=== PATIENT | male | born 1990 | race Two or more races ===

== ENCOUNTER 2018-11-26 16:06 | Emergency (ER) | payer MEDICAID ==
[~2018-11-26] VITALS: Ht 167.6 cm; Wt 53.6 kg
[2018-11-26 16:16] VITALS: BP 107/67
--- NOTE | 2018-11-26 17:41 | NUR ---
Patient/Caregiver given discharge instructions and they have confirmed that they understand the instructions. Patient ambulatory with steady gait.
== END 2018-11-26 17:42 | disposition home or self-care (01) ==
LOC: ED 17:01
DX: B34.9 Viral infection, unspecified (principal); F17.200 Nicotine dependence, unspecified, uncomplicated
CPT/HCPCS: 99283

== ENCOUNTER 2019-11-22 14:35 | Emergency (ER) | payer MEDICAID ==
[~2019-11-22] VITALS: Ht 165.1 cm; Wt 53.0 kg
[2019-11-22 14:58] VITALS: BP 108/73
== END 2019-11-22 16:39 | disposition home or self-care (01) ==
LOC: ED 15:57
DX: H10.233 Serous conjunctivitis, except viral, bilateral (principal)
CPT/HCPCS: 99283

== ENCOUNTER 2020-01-18 11:02 | Emergency (ER) | payer MEDICAID ==
[~2020-01-18] VITALS: Ht 165.1 cm; Wt 53.4 kg
[2020-01-18 11:11] VITALS: BP 109/77
[2020-01-18 11:57] LABS: BASOPHILS # (AUTO) 0.01 x10^3/uL (0-0.1); BASOPHILS % (AUTO) 0 % (0-1); EOSINOPHILS # (AUTO) 0.05 x10^3/uL (0-0.4); EOSINOPHILS % (AUTO) 1 % (1-7); LYMPHOCYTES # (AUTO) 0.86 x10^3/uL (1-3.4); LYMPHOCYTES % (AUTO) 10 % (22-44); MD NO; MEAN CORPUSCULAR HEMOGLOBIN 31.3 pg (27.5-34.5); MEAN CORPUSCULAR HGB CONC 33.1 g/dL (33.2-36.2); MEAN CORPUSCULAR VOLUME 94.5 fL (81-97); MEAN PLATELET VOLUME 8.1 fL (7.4-10.4); MONOCYTES # (AUTO) 0.67 x10^3/uL (0.2-0.8); MONOCYTES % (AUTO) 8 % (2-9); NEUTROPHILS # (AUTO) 7.03 x10^3/uL (1.8-6.8); NEUTROPHILS % (AUTO) 82 % (42-75); PLATELET COUNT 235 x10^3/uL (130-400); RED BLOOD COUNT 6.05 x10^6/uL (4.38-5.82); RED CELL DISTRIBUTION WIDTH 16.1 % (9.4-14.8)
[2020-01-18 12:11] LABS: ALANINE AMINOTRANSFERASE 24 U/L (12-78); ALBUMIN 3.8 g/dL (3.4-5.0); ANION GAP 3 mmol/L (5-15); CALCIUM 8.9 mg/dL (8.5-10.1); CHLORIDE 107 mmol/L (98-107); CREATININE 1.03 mg/dL (0.7-1.3)
[2020-01-18 12:13] LABS: ALKALINE PHOSPHATASE 105 U/L (45-117); BILIRUBIN,TOTAL 0.6 mg/dL (0.2-1.0); TOTAL PROTEIN 7.5 g/dL (6.4-8.2)
--- NOTE | 2020-01-18 12:26 | NUR ---
TO ROOM FROM LOBBY. NAD.
--- NOTE | 2020-01-18 12:28 | NUR ---
pt ambulated from lobby to room with a steady gait. pt in C/O right flank pain with raditing to left side. pt believes he has kidney stones, rash on face and upper shoulders. pt has believes he has a cold. pt changed into hospital gown.
[2020-01-18 13:07] LABS: MICROSCOPIC INDICATED
[2020-01-18 13:22] LABS: CULTURE INDICATED? YES
[2020-01-18] MEDS ORDERED: KETOROLAC 30 MG/1 ML IVPush ONE (13:30)
[2020-01-18] MEDS ORDERED: SODIUM CHLORIDE 0.9% 1,000ML IVBOLUS ONE (13:30)
[2020-01-18] MEDS ORDERED: MORPHINE SULFATE 4 MG/ML, 1ML IVPush PRN (13:30)
[2020-01-18] MEDS ORDERED: ONDANSETRON 2MG/ML, 2ML IVPush ONE (13:30)
[2020-01-18] MEDS ORDERED: KETOROLAC 30 MG/1 ML ONE (13:46)
[2020-01-18] MEDS ORDERED: MORPHINE SULFATE 4 MG/ML, 1ML ONE (13:46)
[2020-01-18] MEDS ORDERED: ONDANSETRON 2MG/ML, 2ML ONE (13:46)
--- NOTE | 2020-01-18 15:29 | NUR ---
Patient given discharge instructions and they have confirmed that they understand the instructions. Patient ambulatory with steady gait. Refused discharge vital signs. A/Ox4, pt left with spouse, verbalized he was not driving home.
== END 2020-01-18 16:08 | disposition home or self-care (01) ==
LOC: ED 16:02
DX: N20.2 Calculus of kidney with calculus of ureter (principal); L20.9 Atopic dermatitis, unspecified; R11.2 Nausea with vomiting, unspecified; R05 Cough; R10.9 Unspecified abdominal pain
CPT/HCPCS: 36415; 74176; 80053; 81001; 83690; 85025; 87086; 96361; 96374; 96375; 99284; J1885; J2270; J2405; J7030

== ENCOUNTER 2021-01-31 17:17 | Observation (INO) | payer MEDICAID ==
[~2021-01-31] VITALS: Ht 165.1 cm; Wt 56.6 kg
--- NOTE | 2021-01-31 17:32 | NUR ---
biba. pt c/o n/v. pt had bbq and alcohol untill 3 am today. pt denies any other symptoms. pt's aox4. resps even and unlabored. zofran given boat captain. bp/spo2 monitors in place. call light within reach.
[2021-01-31] MEDS ORDERED: PROMETHAZINE 25 MG/ML, 1ML IM ONE (18:00)
[2021-01-31] MEDS ORDERED: PROMETHAZINE 25 MG/ML, 1ML ONE (18:04)
--- NOTE | 2021-01-31 18:10 | NUR ---
PT MEDICATED PER EMAR. PT TOLERATED WELL.
--- NOTE | 2021-01-31 18:57 | NUR ---
report given to evelyn bauer.
[2021-01-31] MEDS ORDERED: ONDANSETRON 2MG/ML, 2ML IVPush ONE (20:00)
[2021-01-31] MEDS ORDERED: FAMOTIDINE 20 MG/2 ML IVPush ONE (20:00)
[2021-01-31] MEDS ORDERED: SODIUM CHLORIDE FLUSH 10ML SYR IVF ONE (20:00)
[2021-01-31] MEDS ORDERED: PANTOPRAZOLE 40 MG IV IVPush SCH (20:00)
[2021-01-31] MEDS ORDERED: SODIUM CHLORIDE 0.9% 1,000ML IVBOLUS ONE ×3 (20:00→22:30)
[2021-01-31] MEDS ORDERED: ONDANSETRON 2MG/ML, 2ML ONE (20:37)
[2021-01-31] MEDS ORDERED: PANTOPRAZOLE 40 MG IV ONE (20:38)
[2021-01-31] MEDS ORDERED: FAMOTIDINE 20 MG/2 ML ONE (20:38)
[2021-01-31 20:39] LABS: ALBUMIN 5.2 g/dL (3.4-5.0); ANION GAP 12 mmol/L (5-15); CALCIUM 9.6 mg/dL (8.5-10.1); CHLORIDE 102 mmol/L (98-107)
[2021-01-31 20:42] LABS: ALANINE AMINOTRANSFERASE 33 U/L (12-78); ALKALINE PHOSPHATASE 124 U/L (45-117); BILIRUBIN,TOTAL 0.7 mg/dL (0.2-1.0); CREATININE 1.25 mg/dL (0.7-1.3); TOTAL PROTEIN 9.5 g/dL (6.4-8.2)
[2021-01-31 20:45] LABS: BASOPHILS % (AUTO) 0 % (0-1); EOSINOPHILS % (AUTO) 0 % (1-7); LYMPHOCYTES % (AUTO) 4 % (22-44); MEAN CORPUSCULAR HEMOGLOBIN 32.4 pg (27.5-34.5); MEAN CORPUSCULAR HGB CONC 33.9 g/dL (33.2-36.2); MEAN PLATELET VOLUME 8.9 fL (7.4-10.4); MONOCYTES % (AUTO) 6 % (2-9); NEUTROPHILS % (AUTO) 89 % (42-75); PLATELET COUNT 268 x10^3/uL (130-400); RED BLOOD COUNT 6.21 x10^6/uL (4.38-5.82); RED CELL DISTRIBUTION WIDTH 13.8 % (9.4-14.8)
[2021-01-31 21:07] LABS: MD SCAN
[2021-01-31] MEDS ORDERED: SODIUM CHLORIDE 0.9% 1,000 ML IV ONE (23:00)
[2021-01-31] MEDS ORDERED: HYDROcodone/APAP 5/325 TABLET PO PRN (23:30)
[2021-01-31] MEDS ORDERED: ONDANSETRON 2MG/ML, 2ML IVPush PRN (23:30)
[2021-01-31] MEDS ORDERED: ACETAMINOPHEN 325 MG TABLET PO PRN (23:30)
[2021-01-31] MEDS ORDERED: LABETALOL 5MG/ML, 20ML IVPush PRN (23:30)
[2021-02-01 00:27] VITALS: BP 102/66
[2021-02-01] MEDS: PROMETHAZINE 25 MG/ML, 1ML IM PRN ×2 (01:08→08:30)
[2021-02-01 05:48] LABS: BASOPHILS % (AUTO) 0 % (0-1); EOSINOPHILS % (AUTO) 0 % (1-7); LYMPHOCYTES % (AUTO) 20 % (22-44); MEAN CORPUSCULAR HEMOGLOBIN 32.5 pg (27.5-34.5); MEAN CORPUSCULAR HGB CONC 34.1 g/dL (33.2-36.2); MEAN PLATELET VOLUME 8.4 fL (7.4-10.4); MONOCYTES % (AUTO) 17 % (2-9); NEUTROPHILS % (AUTO) 63 % (42-75); PLATELET COUNT 221 x10^3/uL (130-400); RED BLOOD COUNT 5.28 x10^6/uL (4.38-5.82); RED CELL DISTRIBUTION WIDTH 13.8 % (9.4-14.8)
[2021-02-01 05:54] LABS: ALANINE AMINOTRANSFERASE 24 U/L (12-78); ALBUMIN 3.3 g/dL (3.4-5.0); ANION GAP 9 mmol/L (5-15); CALCIUM 8.1 mg/dL (8.5-10.1); CHLORIDE 112 mmol/L (98-107); CREATININE 0.84 mg/dL (0.7-1.3)
[2021-02-01 05:56] LABS: ALKALINE PHOSPHATASE 82 U/L (45-117); BILIRUBIN,TOTAL 0.4 mg/dL (0.2-1.0); TOTAL PROTEIN 6.3 g/dL (6.4-8.2)
[2021-02-01 06:05] LABS: MD NO
[2021-02-01 07:26] VITALS: BP 92/56
[2021-02-01 13:53] VITALS: BP 111/73
[2021-02-01 15:13] LABS: ANION GAP 6 mmol/L (5-15); CALCIUM 8.2 mg/dL (8.5-10.1); CHLORIDE 113 mmol/L (98-107); CREATININE 0.88 mg/dL (0.7-1.3)
[2021-02-01] MEDS ORDERED: CAPS42.514 TP (15:24)
[2021-02-01] MEDS ORDERED: PROM25SU35 PR (15:24)
== END 2021-02-01 16:39 | disposition home or self-care (01) ==
LOC: ED 18:03 → EDIP 23:23 → INTOOBSV 23:23 → 4WST 02-01 00:14
PROVIDERS: ADMIT Internal Medicine; ATTEND Internal Medicine
DX: R11.2 Nausea with vomiting, unspecified (principal); F10.10 Alcohol abuse, uncomplicated; E87.5 Hyperkalemia; E86.0 Dehydration; D72.829 Elevated white blood cell count, unspecified; N17.9 Acute kidney failure, unspecified; E86.9 Volume depletion, unspecified; R65.10 Systemic inflammatory response syndrome (SIRS) of non-infectious origin without acute organ dysfunction; D75.1 Secondary polycythemia; F12.10 Cannabis abuse, uncomplicated; F17.200 Nicotine dependence, unspecified, uncomplicated; Z88.0 Allergy status to penicillin; Z87.442 Personal history of urinary calculi; Z79.899 Other long term (current) drug therapy
CPT/HCPCS: 36415; 80048; 80053; 83690; 83735; 84100; 84132; 85025; 93005; 96361; 96372; 96374; 96375; 99284; C9113; G0378; J2405; J2550; J7030